=== PATIENT | female | born 1995 | race American Indian/Alaskan Native ===

== ENCOUNTER 2017-05-19 14:34 | Emergency (ER) | payer OTHER ==
[2017-05-19 14:58] VITALS: BP 118/54
[2017-05-19 15:21] LABS: Basophils % (Auto) 0.6 % (0.0-1.8); Eosinophils % (Auto) 2.5 % (0.0-4.3); Hematocrit 40.3 % (30.3-42.9); Hemoglobin 13.4 gm/dl (10.1-14.3); Mean Corpuscular HGB Conc 33 % (30-34); Mean Corpuscular Hemoglobin 31 pg (28-32); Mean Corpuscular Volume 93 fl (79-97); Platelet Count 333 K/mm3 (140-440); Red Blood Count 4.32 M/mm3 (3.65-5.03); Red Cell Distribution Width 13.8 % (13.2-15.2); White Blood Count 9.6 K/mm3 (4.5-11.0)
[2017-05-19 15:46] LABS: Anion Gap 17 mmol/L; Blood Urea Nitrogen 8 mg/dL (7-17); Calcium 8.8 mg/dL (8.4-10.2); Carbon Dioxide 23 mmol/L (22-30); Glucose 74 mg/dL (65-100); Potassium 3.8 mmol/L (3.6-5.0); Sodium 140 mmol/L (137-145)
--- NOTE | 2017-05-21 01:07 | ED Elopement Review ---
ED Pt Elopement review - Results review Lab results: Laboratory Tests 05/19/17 05/19/17 05/19/17 14:59 14:59 15:02 WBC 9.6 RBC 4.32 Hgb 13.4 Hct 40.3 MCV 93 MCH 31 MCHC 33 RDW 13.8 Plt Count 333 Lymph % (Auto) 29.6 Calloway % (Auto) 6.1 Eos % (Auto) 2.5 Baso % (Auto) 0.6 Lymph # 2.8 Calloway # 0.6 Eos # 0.2 Baso # 0.1 Seg Neutrophils % 61.2 Seg Neutrophils # 5.9 Sodium 140 Potassium 3.8 Chloride 104.0 Carbon Dioxide 23 Anion Gap 17 BUN 8 Creatinine 0.8 Estimated GFR > 60 BUN/Creatinine Ratio 10.00 Glucose 74 Calcium 8.8 HCG, Qual Negative - Call Back decision Pt Call Back Decision: No action required
== END 2017-05-20 00:15 | disposition left against medical advice (07) ==
LOC: ED 14:34
DX: R11.2 Nausea with vomiting, unspecified (principal); R19.7 Diarrhea, unspecified; Z53.21 Procedure and treatment not carried out due to patient leaving prior to being seen by health care provider
CPT/HCPCS: 36415; 80048; 84703; 85025

== ENCOUNTER 2020-01-13 12:09 | Emergency (ER) | payer SELFPAY ==
--- NOTE | 2020-01-13 12:38 | Emergency Department Report ---
Blank Doc - Documentation Documentation: 24-year-old female that presents with SOB,body aches, and cough. This initial assessment/diagnostic orders/clinical plan/treatment(s) is/are subject to change based on patient's health status, clinical progression and re- assessment by fellow clinical providers in the ED. Further treatment and workup at subsequent clinical providers discretion. Patient/guardians urged not to elope from the ED as their condition may be serious if not clinically assessed and managed. Initial orders include: 1- Patient sent to [facility] for further evaluation and treatment 2- CXR
[2020-01-13 12:40] VITALS: BP 118/75
--- NOTE | 2020-01-13 13:00 | XRay Report ---
CHEST 2 VIEWS INDICATION / CLINICAL INFORMATION: cough. COMPARISON: None available. FINDINGS: SUPPORT DEVICES: None. HEART / MEDIASTINUM: No significant abnormality. LUNGS / PLEURA: No significant pulmonary or pleural abnormality. No pneumothorax. ADDITIONAL FINDINGS: No significant additional findings. IMPRESSION: 1. No acute findings. Signer Name: Luis F Son MD Signed: 01/13/2020 12:56 PM Workstation Name: [id number]
--- NOTE | 2020-01-13 14:50 | Emergency Department Report ---
- General Chief Complaint: Upper Respiratory Infection Stated Complaint: COUGHING,SULMA Time Seen by Provider: 01/13/20 12:38 Source: patient Mode of arrival: Ambulatory Limitations: No Limitations - History of Present Illness Initial Comments: 24-year-old female with past medical history of asthma but no other significant past medical history presents to the ER today complaining of a one-week history of a cough with yellow/clear sputum. She states that recently she started with rhinorrhea, nasal congestion, and itchy throat. She states that this morning she woke up with the sensation that her chest was tight. She reports mild diaphoresis at night. She denies any wheezing, no shortness of breath, no fever or chills. She states that she does have an albuterol MDI which is old, but she has not attempted to use it since she has been sick. She denies any recent travel. She states that she was exposed to a client who recently traveled from [facility] but that client was cleared for COVID. She reports no other obvious ill contacts. She reports no GI or symptoms at this time. MD Complaint: cough, rhinorrhea, nasal congestion -: week(s) (1) - Related Data Previous Rx's Medication Instructions Recorded Last Taken Type Albuterol INH(or & Nicu Only) 2 puff IH QID PRN #8.5 gram 01/13/20 Unknown Rx [ProAir HFA Inhaler] Amoxicillin [Trimox CAP] 500 mg PO Q8H #30 capsule 01/13/20 Unknown Rx predniSONE [Deltasone] 50 mg PO QDAY #5 tab 01/13/20 Unknown Rx Allergies Allergy/AdvReac Type Severity Reaction Status Date / Time No Known Allergies Allergy Unverified 05/19/17 14:54 ED Review of Systems ROS: Stated complaint: COUGHING,SULMA Other details as noted in HPI Comment: All other systems reviewed and negative Constitutional: diaphoresis. denies: chills, fever ENT: congestion. denies: ear pain, throat pain, dental pain, hearing loss, epistaxis Respiratory: cough. denies: orthopnea, shortness of breath, SOB at rest, wheezing Cardiovascular: other (Chest tightness). denies: chest pain, dyspnea on exertion, edema, syncope Gastrointestinal: denies: abdominal pain, nausea, vomiting, diarrhea, constipation, hematochezia Genitourinary: denies: urgency, dysuria, frequency, hematuria, discharge, abn ormal menses, dyspareunia Skin: denies: rash, lesions, change in color, change in hair/nails, pruritus Neurological: denies: headache, weakness, numbness, paresthesias, confusion, abnormal gait, vertigo ED Past Medical Hx - Past Medical History Previous Medical History?: No - Surgical History Past Surgical History?: No - Social History Smoking Status: Never Smoker Substance Use Type: None - Medications Home Medications: Home Medications Medication Instructions Recorded Confirmed Last Taken Type Albuterol INH(or & Nicu Only) 2 puff IH QID PRN #8.5 gram 01/13/20 Unknown Rx [ProAir HFA Inhaler] Amoxicillin [Trimox CAP] 500 mg PO Q8H #30 capsule 01/13/20 Unknown Rx predniSONE [Deltasone] 50 mg PO QDAY #5 tab 01/13/20 Unknown Rx ED Physical Exam - General Limitations: No Limitations General appearance: alert, in no apparent distress - Head Head exam: Present: atraumatic, normocephalic, normal inspection - Eye Eye exam: Present: normal appearance, PERRL, EOMI - ENT ENT exam: Present: normal exam, normal orophraynx, mucous membranes moist - Neck Neck exam: Present: normal inspection, full ROM. Absent: meningismus - Respiratory Respiratory exam: Present: normal lung sounds bilaterally. Absent: respiratory distress - Cardiovascular Cardiovascular Exam: Present: regular rate, normal rhythm, normal heart sounds - GI/Abdominal GI/Abdominal exam: Present: soft. Absent: distended, tenderness - Neurological Exam Neurological exam: Present: alert, oriented X3, CN II-XII intact, normal gait, abnormal gait - Psychiatric Psychiatric exam: Present: normal affect, normal mood - Skin Skin exam: Present: intact ED Course Vital Signs 01/13/20 12:38 Temperature 98.8 F Pulse Rate 67 Respiratory 18 Rate Blood Pressure 118/75 O2 Sat by Pulse 100 Oximetry ED Medical Decision Making - Radiology Data Radiology results: report reviewed Patient presented to the ER today complaining of cough, URI symptoms, chest tightness - Medical Decision Making Patient presented to the ER today complaining of cough, chest tightness, URI symptoms but no fever, or complaints of shortness of breath. She does have asthma but she states her albuterol inhaler is old. She denies any recent travel and denies any ill contacts or known COVID patients. Chest x-ray is negative for anything acute. Patient is well-appearing, nontoxic, she is currently not in any acute pain or respiratory distress, vital signs are stable, she is awake, alert and oriented x3 and neurologically intact. Discussed chest x-ray results with patient, and also discussed suspected diagnosis and treatment plan with patient. Patient was hoping to get tested for COVID here today but informed her that the ER start not doing outpatient testing. If she is really concerned recommend that she follows up with a primary care doctor order [facility] department. In the meantime I recommended that she self quarantine at home for the next 2 weeks, to take her medications, lots of rest and fluids and if her symptoms get worse and she develops fever to return to the ER. Critical care attestation.: If time is entered above; I have spent that time in minutes in the direct care of this critically ill patient, excluding procedure time. ED Disposition Clinical Impression: Asthmatic bronchitis, Sinusitis Disposition: DC-01 TO HOME OR SELFCARE Is pt being admited?: No Does the pt Need Aspirin: No Condition: Stable Instructions: Sinusitis (ED), Acute Bronchitis (ED) Additional Instructions: Recommend taking the medications as prescribed. Recommend lots of rest, fluids, Tylenol for any pain and close follow-up with primary care doctor. Recommend mucinex from over the counter for cough. Recommend self quarantine at home for 2 weeks. If you are concerned for COVID and want testing, recommend that you follow-up with the [facility] health department and/or your primary care doctor. Continue to monitor your symptoms at home, if you develop fever (100.5) and your symptoms worsen return to the ER. Prescriptions: predniSONE [Deltasone] 50 mg PO QDAY #5 tab Albuterol INH(or & Nicu Only) [ProAir HFA Inhaler] 2 puff IH QID PRN #8.5 gram PRN Reason: Shortness Of Breath Amoxicillin [Trimox CAP] 500 mg PO Q8H #30 capsule Referrals: USMAN HAYNES MD [Staff Physician] - 3-5 Days Forms: Work/School Release Form(ED) Time of Disposition: 14:53
== END 2020-01-13 15:06 | disposition home or self-care (01) ==
LOC: ED 12:09
DX: J01.80 Other acute sinusitis (principal); J45.998 Other asthma
CPT/HCPCS: 71046